=== PATIENT | female | born 1985 | race African-American/Black ===

== ENCOUNTER 2017-11-10 16:50 | Emergency (ER) | payer SELFPAY ==
[~2017-11-10] VITALS: Ht 157.5 cm; Wt 80.7 kg
[2017-11-10 17:08] VITALS: BP_SYST 112
[2017-11-10] MEDS ORDERED: KETOROLAC TROMETHAMINE 30 MG VIAL IM ONE (18:15)
[2017-11-10 19:34] VITALS: BP_SYST 124
== END 2017-11-10 19:34 | disposition home or self-care (01) ==
LOC: SED 16:50
DX: S06.0X9A Concussion with loss of consciousness of unspecified duration, initial encounter (principal); R03.0 Elevated blood-pressure reading, without diagnosis of hypertension; W10.9XXA Fall (on) (from) unspecified stairs and steps, initial encounter; Y93.89 Activity, other specified; Y92.009 Unspecified place in unspecified non-institutional (private) residence as the place of occurrence of the external cause; Y99.8 Other external cause status
CPT/HCPCS: 70450; 96372; 99284; J1885